=== PATIENT | female | born 1965 | race African-American/Black ===

== ENCOUNTER 2016-06-26 12:52 | Emergency (ER) | payer OTHER ==
[~2016-06-26] VITALS: Ht 170.2 cm; Wt 120.0 kg
[2016-06-26] MEDS ORDERED: SODIUM CHLORIDE 0.9% 500 ML IV ONE (13:26)
[2016-06-26] MEDS ORDERED: KETOROLAC 30MG/ML VIAL IV ONE (13:30)
[2016-06-26 13:46] LABS: BG BASE EXCESS -0.9 mmol/L (-2.0-2.0); BG CARBOXYHEMOGLOBIN 0.1 % (0.5-1.5); BG DEOXYHEMOGLOBIN 3.7 % (0.0-5.0); BG HCO3 ACT 23.5 mmol/L (22.0-26.0); BG METHEMOGLOBIN 0.2 % (0.0-1.5); BG OXYGEN SATURATION 96.3 % (92.0-98.5); BG PCO2 37.9 mmHg (35.0-45.0); BG PO2 82.6 mmHg (75.0-100.0); BG SAMPLE SITE RIGHT RADIAL; BG TOTAL HEMOGLOBIN 13.2 g/dL (12.0-18.0); BG VENT MODE ROOM AIR
[2016-06-26 14:20] LABS: BASOPHILS % 1.1 % (0.0-2.0); EOSINOPHILS % 6.6 % (0.0-5.0); HEMATOCRIT. 38.7 % (36.0-48.0); HEMOGLOBIN. 12.7 g/dL (12.0-16.0); MEAN CORPUSCULAR HEMOGLOBIN 28.3 pg (28.0-32.0); MEAN CORPUSCULAR HGB CONC 32.9 g/dL (31.0-37.0); MEAN PLATELET VOLUME 10.8 fl (7.4-10.4); MONOCYTES % 10.8 % (2.0-8.0); NEUTROPHILS % 42.5 % (40.0-76.0); PLATELET 152 x1000/uL (130-400); WHITE BLOOD COUNT 5.4 x1000/uL (4.5-11.0)
[2016-06-26 14:27] LABS: ALANINE AMINOTRANSFERASE 16 IU/L (13-61); ALBUMIN 3.5 g/dL (3.4-5.0); ANION GAP 15; CALCIUM 8.9 mg/dL (8.5-10.1); CARBON DIOXIDE 28 mEq/L (21-32); CHLORIDE 107 mEq/L (98-107); INDEX HEMOLYSI 1 (1-3); INDEX ICTERIC 1 (1-4); INDEX LIPEMIC 1 (1-3); UREA NITROGEN BLOOD 13 mg/dL (7-21); eGFR > 60 mL/min (>60)
[2016-06-26 14:28] LABS: HCG SCREEN NEGATIVE
[2016-06-26 14:30] VITALS: BP 142/100
[2016-06-26 14:31] LABS: TROPONIN I < 0.02 ng/mL (0.00-0.04)
[2016-06-26] MEDS ORDERED: HYDROCODONE/ACETAMINOPHEN 5/325MG TABLET PO NR (16:30)
== END 2016-06-26 16:42 | disposition home or self-care (01) ==
LOC: ER 13:02
DX: G43.909 Migraine, unspecified, not intractable, without status migrainosus (principal); I10 Essential (primary) hypertension; R55 Syncope and collapse
CPT/HCPCS: 36415; 36600; 70450; 71010; 80053; 82375; 82805; 82962; 84484; 84703; 85025; 93005; 96374; 99285; J1885; J7040; Z7610